=== PATIENT | male | born 1960 | race Caucasian/White ===

== ENCOUNTER 2017-04-04 11:48 | Inpatient (IN) | payer MEDICAID ==
--- NOTE | 2017-04-04 12:01 | ER Document Report ---
ED Medical Screen (RME) - General Chief Complaint: Headache >24 hrs old Stated Complaint: HEADACHE POSSIBLE STROKE SYMPTOMS Time Seen by Provider: 04/04/17 11:57 Notes: Patient was brought in by his who thinks he may be having another stroke. Patient says he had a bad headache for the past week. The headache has been constant. The headache is associated with numbness of his right side from the arm through the leg. He cannot walk without help from his . The headache is located on the left side of his head. He passed out falling to the floor hitting his head on Saturday. That fall was witnessed by his . Patient has a history of 2 prior strokes, in 2013 and 2015. He says his symptoms are about the same with this current illness. TRAVEL OUTSIDE OF THE [place] IN LAST 30 DAYS: No - Related Data Allergies/Adverse Reactions: No Known Allergies Allergy (Unverified 12/03/15 12:28) Past Medical History - Past Medical History Cardiac Medical History: Reports: Hx Hypercholesterolemia, Hx Hypertension Neurological Medical History: Reports: Hx Seizures Renal/ Medical History: Denies: Hx Peritoneal Dialysis Physical Exam - Vital signs Vitals: Temp Pulse BP Pulse Ox 97.8 F 116 H 135/102 H 93 04/04/17 11:51 04/04/17 11:51 04/04/17 11:51 04/04/17 11:51 Course - Vital Signs Vital signs: Temp Pulse Resp BP Pulse Ox 97.8 F 115 H 16 132/98 H 91 L 04/04/17 11:51 04/04/17 11:52 04/04/17 11:52 04/04/17 11:52 04/04/17 11:52
[2017-04-04 12:56] LABS: ABSOLUTE BASOPHILS # (AUTO) 0.1 10^3/uL (0.0-0.2); ABSOLUTE EOSINOPHILS # (AUTO) 0.1 10^3/uL (0.0-0.6); ABSOLUTE LYMPHOCYTES (AUTO) 2.1 10^3/uL (0.5-4.7); ABSOLUTE MONOCYTES (AUTO) 0.7 10^3/uL (0.1-1.4); ABSOLUTE NEUT (AUTO) 6.3 10^3/uL (1.7-8.2); APPEARANCE,URINE CLEAR; BASOPHILS % (AUTO) 1.1 % (0-2); BILIRUBIN,URINE NEGATIVE (NEGATIVE); GLUCOSE, URINE NEGATIVE (NEGATIVE); HEMATOCRIT 50.1 % (37.9-51.0); HEMOGLOBIN 16.6 g/dL (13.5-17.0); HGB HCT DIFFERENCE -0.3; KETONES,URINE NEGATIVE (NEGATIVE); LEUKOCYTE ESTERASE,URINE NEGATIVE (NEGATIVE); LYMPHOCYTES % (AUTO) 22.7 % (13-45); MEAN CORPUSCULAR HEMOGLOBIN 32.7 pg (27.0-33.4); MEAN CORPUSCULAR HGB CONC 33.1 g/dL (32.0-36.0); MEAN CORPUSCULAR VOLUME 99 fl (80-97); MONOCYTES % (AUTO) 7.9 % (3-13); NITRITE,URINE NEGATIVE (NEGATIVE); PROTEIN,URINE NEGATIVE (NEGATIVE); RED BLOOD COUNT 5.07 10^6/uL (4.35-5.55); RED CELL DISTRIBUTION WIDTH 13.8 % (11.5-14.0); SEGMENTED NEUTROPHILS % (AUTO) 67.3 % (42-78); UROBILINOGEN,URINE NEGATIVE mg/dL (<2.0); WHITE BLOOD COUNT 9.3 10^3/uL (4.0-10.5)
--- NOTE | 2017-04-04 12:57 | EKG REPORT ---
SEVERITY:- BORDERLINE ECG - SINUS RHYTHM PROBABLE LEFT ATRIAL ABNORMALITY BORDERLINE LEFT AXIS DEVIATION BORDERLINE PROLONGED QT INTERVAL : Confirmed by: Mohsen Garcia MD 04-Apr-2017 12:55:56
[2017-04-04 13:01] LABS: URINE SPECIFIC GRAVITY 1.002
--- NOTE | 2017-04-04 13:06 | RADIOLOGY REPORT (SQ) ---
EXAM DESCRIPTION: CT HEAD WITHOUT COMPLETED DATE/TIME: 04/04/2017 12:42 pm REASON FOR STUDY: Headache, numb right side, Hx strokes COMPARISON: CT brain 12/03/2015 TECHNIQUE: Axial images acquired through the brain without intravenous contrast. Images reviewed wi th bone, brain and subdural windows. Images stored on PACS. All CT scanners at this facility use dose modulation, iterative reconstruction, and/or weight based d osing when appropriate to reduce radiation dose to as low as reasonably achievable (ALARA). [facility]: Dose Right [facility]: CareDose [facility]: Dose Right [facility]: Teradose 4D [facility]: [employer] RADIATION DOSE: Up-to-date CT equipment and radiation dose reduction techniques were employed. CTDIv ol: 64.6 mGy. DLP: 1163 mGy-cm. mGy. LIMITATIONS: None. FINDINGS: VENTRICLES: Normal size and contour. CEREBRUM: Multiple foci of low attenuation in the bifrontal and biparietal white matter, bilateral ba golden ganglia, right and left thalamus from old lacunar infarcts. No CT evidence of large territory acute ischemic change, acute intracranial hemorrhage, mass effect, or midline shift. CEREBELLUM: Moderate pontine small vessel ischemic change. No CT evidence of large territory posteri or fossa infarct or acute posterior fossa intracranial hemorrhage. EXTRAAXIAL SPACES: No fluid collections. No masses. ORBITS AND GLOBE: No intra- or extraconal masses. Normal contour of globe without masses. CALVARIUM: Old right frontal craniotomy for evacuation of remote prior subdural hemorrhage. There ar e metallic sutures along the posterior aspect of the craniotomy. PARANASAL SINUSES: No fluid or mucosal thickening. SOFT TISSUES: No mass or hematoma. OTHER: Findings discussed with Dr. Rosado IMPRESSION: Chronic small vessel disease. No acute large territory infarct identified. No acute in tracranial hemorrhage. TECHNICAL DOCUMENTATION: JOB ID: [id number] Quality ID # [id number]: Final reports with documentation of one or more dose reduction techniques (e.g., Au tomated exposure control, adjustment of the mA and/or kV according to patient size, use of iterative reconstruction technique) 2010 [employer]- All Rights Reserved
[2017-04-04 13:14] LABS: ALANINE AMINOTRANSFERASE 87 U/L (21-72); ALBUMIN 4.7 g/dL (3.5-5.0); ALKALINE PHOSPHATASE 82 U/L (38-126); ANION GAP 14 (5-19); ASPARTATE AMINO TRANSFERASE 77 U/L (17-59); BILIRUBIN,DIRECT 0.3 mg/dL (0.0-0.4); BILIRUBIN,TOTAL 0.5 mg/dL (0.2-1.3); BLOOD UREA NITROGEN 4 mg/dL (7-20); CALCIUM 9.9 mg/dL (8.4-10.2); CARBON DIOXIDE 25 mmol/L (22-30); CHLORIDE 107 mmol/L (98-107); GLUCOSE 81 mg/dL (75-110); POTASSIUM 4.1 mmol/L (3.6-5.0); SODIUM 145.7 mmol/L (137-145); TOTAL PROTEIN 8.3 g/dL (6.3-8.2)
--- NOTE | 2017-04-04 14:21 | ER Document Report ---
ED Neuro Symptoms/Deficit - General Mode of Arrival: Wheelchair Information source: Patient TRAVEL OUTSIDE OF THE [place] IN LAST 30 DAYS: No - HPI Patient complains to provider of: Other - numbness Associated symptoms: Other <JEANETTE DAN - Last Filed: 04/04/17 20:03> <LASHAY DALTON - Last Filed: 04/15/17 00:17> - General Chief Complaint: Numbness Stated Complaint: numbness Time Seen by Provider: 04/04/17 11:57 Notes: Patient is a 56 year old male, with a past medical history including CVA and subdural hematoma when he was 20, who presents to the emergency department with his cloth hauler for worsening numbness and tingling in his right extremities. Patient states that he had fallen and hit his head 9 days ago and was unconscious for a few minutes, cloth hauler states she believes he had another stroke. Patient also complains of a headache that has been constant since he had a subdural hematoma at age 20 and has increased in the past couple of weeks. Transport Tech reports that he saw Dr. Browning after the fall and had CAT scan which was read today and they were told to come to the ED. PCP: Dr. Browning (JEANETTE DAN) - Related Data Allergies/Adverse Reactions: No Known Allergies Allergy (Unverified 12/03/15 12:28) Home Medications: Current Home Medications Aspirin [Ecotrin 325 mg EC Tablet] 325 mg PO DAILY 04/04/17 [History] Lisinopril [Prinivil 10 mg Tablet] 10 mg PO DAILY 04/04/17 [History] Oxycodone HCl/Acetaminophen [Percocet 10-325 mg Tablet] 1 each PO BIDP PRN 04/04 [History] Past Medical History - General Information source: Patient - Social History Smoking Status: Current Every Day Smoker Chew tobacco use (# tins/day): No Frequency of alcohol use: Social Drug Abuse: None Family History: Reviewed & Not Pertinent Patient has suicidal ideation: No Patient has homicidal ideation: No - Past Medical History Cardiac Medical History: Reports: Hx Hypercholesterolemia, Hx Hypertension Neurological Medical History: Reports: Hx Seizures - Immunizations Hx Diphtheria, Pertussis, Tetanus Vaccination: No <JEANETTE DAN - Last Filed: 04/04/17 20:03> Review of Systems - Review of Systems Constitutional: No symptoms reported EENT: No symptoms reported Cardiovascular: No symptoms reported Respiratory: No symptoms reported Gastrointestinal: No symptoms reported Genitourinary: No symptoms reported Male Genitourinary: No symptoms reported Musculoskeletal: No symptoms reported Skin: No symptoms reported Hematologic/Lymphatic: No symptoms reported Neurological/Psychological: See HPI, Headaches, Numbness, Tingling -: Yes All other systems reviewed and negative <JEANETTE DAN - Last Filed: 04/04/17 20:03> Physical Exam <JEANETTE DAN - Last Filed: 04/04/17 20:03> <LASHAY DALTON - Last Filed: 04/15/17 00:17> - Vital signs Vitals: Temp Pulse BP Pulse Ox 97.8 F 116 H 135/102 H 93 04/04/17 11:51 04/04/17 11:51 04/04/17 11:51 04/04/17 11:51 - Notes Notes: GENERAL: Alert, interacts well. No acute distress. HEAD: Normocephalic, atraumatic. EYES: Pupils equal, round, and reactive to light. Extraocular movements intact. ENT: Oral mucosa moist, tongue midline. NECK: Full range of motion. Supple. Trachea midline. LUNGS: Inspiratory rhonchi at bases. No wheezes or rales. No respiratory distress. HEART: Regular rate and rhythm. No murmurs, gallops, or rubs. ABDOMEN: Soft, non-tender. Non-distended. Bowel sounds present in all 4 quadrants. BACK: Palpable scoliosis. No step offs or deformities. No midline tonya tenderness to palpation. EXTREMITIES: Moves all 4 extremities spontaneously. No edema, radial and dorsalis pedis pulses 2/4 bilaterally. No cyanosis. Tenderness to palpation over 1st and 2nd metatarsals. NEUROLOGICAL: Alert and oriented x3. Normal speech. Biceps and patellar DTRs 2+ bilaterally. Right arm falls to bed before 10 second count, right lower extremity falls to bed before 5 second count. 5 out of 5 strength in left upper and lower extremities. 4 out of 5 strength to right upper and lower extremities. Decreased sensation in right hand. Slight left sided facial droop. PSYCH: Normal affect, normal mood. SKIN: Warm, dry, normal turgor. No rashes or lesions noted. (JEANETTE DAN) Course - Laboratory Result Diagrams: 04/04/17 12:30 04/04/17 12:30 <JEANETTE DAN - Last Filed: 04/04/17 20:03> - Laboratory Result Diagrams: 04/05/17 03:34 04/05/17 03:34 <LASHAY DALTON - Last Filed: 04/15/17 00:17> - Re-evaluation Re-evalutation: 04/04/17 15:13 CBC is unremarkable, coags normal, CMP shows slightly elevated sodium 145.7, AST and ALT somewhat elevated at 77 and 87 respectively, consistent with daily alcohol use, alcohol level is pending, urinalysis unremarkable, head CT shows chronic changes associated with prior subdural and craniotomy in 20 years old as well as stroke with several recurrences within the past 3 years. Patient has already been seen by his primary care physician, patient, caregiver and primary care physician all agree that symptoms are worsening, patient is having increasing falls. Primary care physician does not feel he can complete the workup for worsening weakness and falls and possible worsening of his stroke symptoms as an outpatient. Patient was discussed with Dr. Klein and Dr. Thomas for further workup regarding multiple falls and worsening of his stroke symptoms. Patient will be placed in observation status. Patient is not a candidate for TPA as his symptoms worsened 1 week ago. (LASHAY DALTON) - Vital Signs Vital signs: Temp Pulse Resp BP Pulse Ox 98.1 F 64 18 112/81 100 04/07/17 09:22 04/07/17 09:22 04/07/17 09:22 04/07/17 09:22 04/07/17 09:22 - Laboratory Laboratory results interpreted by me: 04/04/17 04/04/17 04/05/17 12:30 12:30 03:34 MCV 99 H 100 H Plt Count 136 L Sodium 145.7 H BUN 4 L Glucose AST 77 H ALT 87 H Total Protein 8.3 H 04/05/17 03:34 MCV Plt Count Sodium BUN Glucose 143 H AST ALT Total Protein - EKG Interpretation by Me Additional EKG results interpreted by me: 04/04/17 15:15 EKG shows sinus rhythm at a rate of 99, left axis deviation, prolonged QT interval, good R-wave progression, no ST segment elevations or depressions, no T -wave inversions per my interpretation. (LASHAY DALTON) Discharge <JEANETTE DAN - Last Filed: 04/04/17 20:03> - Discharge Admitting Provider: Hospitalist - Buste Unit Admitted: IMCU <LASHAY DALTON - Last Filed: 04/15/17 00:17> - Discharge Clinical Impression: CVA (cerebral vascular accident) Qualifiers: CVA mechanism: unspecified Qualified Code(s): I63.9 - Cerebral infarction, unspecified Condition: Fair Disposition: ADMITTED OBSERVATION Scribe Attestation: 04/15/17 00:17 I personally performed the services described in the documentation, reviewed and edited the documentation which was dictated to the scribe in my presence, and it accurately records my words and actions. (LASHAY DALTON) Scribe Documentation - Scribe Written by Scribe:: avis Nair, 04/04/17, 1534 acting as scribe for :: Marquez <JEANETTE DAN - Last Filed: 04/04/17 20:03> ED NIH Stroke Scale - NIH Stroke Scale When completed:: Protocol *: 1. NIH scale should be completed with appropriate accompanying assessment tools. *: 2. The NIH should reflect what the patient is capable of doing and should not be coached by the clinician. 1a. Level of Consciousness: 0=Alert;keenly responsive -: 1=Drowsy -: 2=Obtunded -: 3=Coma/unresponsive or reflex to noxious stimuli. 1a. Responses: 0 1b. Orientation Questions: a. What month is it? -: b. How old are you? -: 0=Answers both questions correctly. -: 1=Answers one question correctly or patient is intubated or has orotracheal trauma. -: 2=Answers neither question correctly. 1b. Responses: 0 1c. Response to commands: a. Open and close eyes? -: b. Instructional Manager and release hand? -: Credit is given despite weakness. Demonstration of task is permitted. Substitute command if hands cannot be used. -: 0=Performs both tasks correctly -: 1=Performs one task correctly -: 2=Performs neither task correctly 1c. Responses: 0 2. Gaze: Establish eye contact and instruct patient to "Follow my finger" -: 0=Normal -: 1=Partial gaze palsy. Gaze is abnormal in one or both eyes, but where forced deviation or total gaze paresis is not present. -: 2=Forced deviation or total gaze paresis. 2. Responses: 0 3. Visual Crook: Sees fingers in all four quadrants. -: 0=No visual loss. -: 1=Partial hemianopsia. -: 2=Complete hemianopsia. -: 3=Bilateral hemianopsia (including Cortical blindness) 3. Responses: 0 4. Facial Movement: Instruct patient to: -: a. Show me your teeth -: b. Raise your eyebrows -: c. Close your eyes -: d. Smile -: 0=Normal symmetrical movement -: 1=Minor paralysis (flattened nasolabial fold, asymmetry on smiling). -: 2=Partial paralysis (total or near total paralysis of lower face). -: 3=Complete paralysis of upper and lower face 4. Responses: 1 5. Motor functions (left arm): Alternate sides and extend each arm with palms down (90 degrees if sitting or 45 degrees for supine). -: 0=No drift;limb holds for full 10 seconds. -: 1=Drift; limb holds but drifts down before full 10 seconds, but does not hit bed. -: 2=Some effort against gravity; limb cannot get to or maintain position. -: 3=No effort against gravity; limb falls. -: 4=No movement. -: UN=Amputation, joint fusion, explain in comments. 5. Responses (left arm): 0 5. Motor Functions (right arm): Alternate sides and extend each arm with palms down (90 degrees if sitting or 45 degrees for supine). -: 0=No drift;limb holds for full 10 seconds. -: 1=Drift; limb holds but drifts down before full 10 seconds, but does not hit bed. -: 2=Some effort against gravity; limb cannot get to or maintain position. -: 3=No effort against gravity; limb falls. -: 4=No movement. -: UN=Amputation, joint fusion, explain in comments. 5. Responses (right arm): 2 6. Motor Functions (left leg): With patient lying supine, alternate sides and extend each leg (30 degrees always while supine). -: 0=No drift, leg holds position for full 5 seconds -: 1=Drift; leg falls before full 5 seconds but does not hit bed. -: 2=Some effort against gravity, leg falls to bed but some effort against gravity. -: 3=No effort against gravity, leg falls to bed immediately. -: 4=No movement. -: UN=Amputation, joint fusion; explain in comments. 6. Responses (left leg): 0 6. Motor Functions (right leg): With patient lying supine, alternate sides and extend each leg (30 degrees always while supine). -: 0=No drift, leg holds position for full 5 seconds -: 1=Drift; leg falls before full 5 seconds but does not hit bed. -: 2=Some effort against gravity, leg falls to bed but some effort against gravity. -: 3=No effort against gravity, leg falls to bed immediately. -: 4=No movement. -: UN=Amputation, joint fusion; explain in comments. 6. Responses (right leg): 2 7. Limb Ataxia: With eyes open instruct patient to: -: a. "Touch your finger to your nose". -: b. "Touch your heel to your dominguez" -: 0=Absent -: 1=Present in one limb. -: 2=Present in two limbs. -: UN=Amputation or joint fusion; explain in comments. 7. Responses: 0 8. Sensory: Test sensation using pinprick or noxious stimuli. Test as many body parts as possible. -: 0=Normal;no sensory loss -: 1=Mile to moderate sensory loss (patient feels pin prick but is less sharp on affected side). -: 2=Severe or total sensory loss. 8. Responses: 0 9. Best Language: Instruct patient to: -: a. "Describe what you see in this picture." -: b. "Name the items in this picture." -: c. "Read these sentences." -: 0=No aphasia, normal -: 1=Mild to moderate aphasia. -: 2=Severe aphasia -: 3=Mute, global aphasia, no usable speech or auditory comprehension. 9. Responses: 0 10. Articulation, Dysarthia: Instruct patient to: -: "Read these words" or "Repeat these words" -: 0=Normal -: 1=Mild to moderate; patient may slur some words but can be understood without difficulty. -: 2=Severe; patients speech so slurred as to be unintelligible in the absence of dysphasia. -: UN=Intubated or other physical barrier, explain in comments. 10. Responses: 0 11. Extinction or inattention: 0=No abnormality -: 1= Visual, tactile, auditory, spatial, or personal inattention or extinction to bilateral simulation in one or the sensory modalities. -: 2=Profound ivana-inattention or ivana-inattention to more than one modality; does not recognize own hand. 11. Responses: 0 Total Score: 5 <JEANETTE DAN - Last Filed: 04/04/17 20:03>
[2017-04-04] MEDS ORDERED: ASPIRIN 325 MG TABLET PO ONE (14:23)
[2017-04-04 14:32] LABS: PROTHROMBIN TIME 12.3 SEC (11.4-15.4)
[2017-04-04 14:33] LABS: PARTIAL THROMBOPLASTIN TIME 29.8 SEC (23.5-35.8)
[2017-04-04] MEDS ORDERED: ACETAMINOPHEN 325 MG TABLET PO PRN (15:30)
[2017-04-04] MEDS ORDERED: ONDANSETRON 4 MG TAB.RAPDIS PO PRN (15:30)
[2017-04-04] MEDS ORDERED: ALBUTEROL SULFATE 0.083% NEB 2.5 MG/3 ML AMPUL NEB PRN (15:30)
[2017-04-04] MEDS ORDERED: OXYCODONE-ACETAMINOPHEN 5-325 MG TABLET PO PRN (15:30)
--- NOTE | 2017-04-04 15:37 | RADIOLOGY REPORT (SQ) ---
EXAM DESCRIPTION: CHEST PA/LAT COMPLETED DATE/TIME: 04/04/2017 3:01 pm REASON FOR STUDY: worsening weakness COMPARISON: 12/03/2015 EXAM PARAMETERS: NUMBER OF VIEWS: two views TECHNIQUE: Digital Frontal and Lateral radiographic views of the chest acquired. RADIATION DOSE: NA LIMITATIONS: none FINDINGS: LUNGS AND PLEURA: No opacities, masses or pneumothorax. No pleural effusion. MEDIASTINUM AND HILAR STRUCTURES: No masses or contour abnormalities. HEART AND VASCULAR STRUCTURES: Heart normal size. No evidence for failure. BONES: No acute findings. HARDWARE: None in the chest. OTHER: No other significant finding. IMPRESSION: NO SIGNIFICANT RADIOGRAPHIC FINDING IN THE CHEST. TECHNICAL DOCUMENTATION: JOB ID: [id number] [employer]- All Rights Reserved
[2017-04-04] MEDS ORDERED: LORAZEPAM 1 MG TABLET PO PRN (15:42)
--- NOTE | 2017-04-04 15:53 | PDOC H&P ---
History of Present Illness Admission Date/PCP: 04/04/17 15:18 DIOGENES JACOBO MD Patient complains of: Right-sided weakness for the last 5 days. History of Present Illness: AHMET GAGNON is a 56 year old male history of a previous CVA with right- sided weakness last in the hospital year ago with a TIA who presents with a one- week history of worsening weakness on the right. He reports that he has become progressively weak mostly his right hand also involving his right leg. He denies any change in his sensation but does have some baseline numbness. The patient had a head CT done that showed no acute event. The patient does report he has problems with pain in his back and neck and has very significant degenerative disc disease. The patient denies any headache. He denies any visual loss. Denies any changes in hearing. Denies any dysarthria or dysphasia. He denies any bowel or bladder incontinence. He does continue to drink at least 3 beers daily. Patient has been taking aspirin and reports he is taking faithfully. Past Medical History Cardiac Medical History: Reports: Hyperlipidema, Hypertension Neurological Medical History: Reports: Seizures, Other - Subdural hematoma at age 20 Renal/ Medical History: Reports: None Malignancy Medical History: Reports: None GI Medical History: Reports: None Musculoskeltal Medical History: Reports: Other - Chronic back pain with degenerative disc disease Skin Medical History: Reports: None Psychiatric Medical History: Reports: Alcohol Dependency, Tobacco Dependency Hematology: Reports: None Infectious Medical History: Reports: None Social History Information Source: Patient Lives with: Spouse/Significant other Smoking Status: Current Every Day Smoker Frequency of Alcohol Use: Social Hx Recreational Drug Use: No Drugs: None Hx Prescription Drug Abuse: No - Advance Directive Resuscitation Status: Do Not Resuscitate Family History Family History: There is 74 alive and has skin cancer as well as coronary artery disease. Mother is alive at 75. She has diabetes and hypertension Parental Family History Reviewed: Yes Children Family History Reviewed: No Sibling(s) Family History Reviewed.: No Medication/Allergy Home Medications: Aspirin [Ecotrin 325 mg EC Tablet] 325 mg PO DAILY #90 tabec 12/05/15 Lisinopril 10 mg PO DAILY 04/04/17 Oxycodone HCl/Acetaminophen [Oxycodone-Acetaminophen 10-325] 1 each PO Q4H PRN 04/04/17 Allergies/Adverse Reactions: No Known Allergies Allergy (Unverified 12/03/15 12:28) Review of Systems Constitutional: ABSENT: chills, fever(s), headache(s), weight gain, weight loss Eyes: ABSENT: visual disturbances Ears: ABSENT: hearing changes Cardiovascular: ABSENT: chest pain, dyspnea on exertion, edema, orthropnea, palpitations Respiratory: ABSENT: cough, hemoptysis Gastrointestinal: ABSENT: abdominal pain, constipation, diarrhea, hematemesis, hematochezia, nausea, vomiting Genitourinary: ABSENT: dysuria, hematuria Musculoskeletal: ABSENT: joint swelling Integumentary: ABSENT: rash, wounds Neurological: PRESENT: as per HPI Psychiatric: ABSENT: anxiety, depression Endocrine: ABSENT: cold intolerance, heat intolerance, polydipsia, polyuria Hematologic/Lymphatic: ABSENT: easy bleeding, easy bruising Physical Exam Vital Signs: Temp Pulse Resp BP Pulse Ox 97.8 F 68 17 140/78 H 96 04/04/17 11:51 04/04/17 14:30 04/04/17 14:34 04/04/17 14:34 04/04/17 14:34 General appearance: PRESENT: no acute distress, well-developed, well-nourished Head exam: PRESENT: atraumatic, normocephalic Eye exam: PRESENT: conjunctiva pink, EOMI, PERRLA. ABSENT: scleral icterus Ear exam: PRESENT: normal external ear exam Mouth exam: PRESENT: moist, tongue midline Neck exam: ABSENT: carotid bruit, JVD, lymphadenopathy, thyromegaly Respiratory exam: PRESENT: clear to auscultation cedric. ABSENT: rales, rhonchi, wheezes Cardiovascular exam: PRESENT: RRR. ABSENT: diastolic murmur, rubs, systolic murmur Pulses: PRESENT: normal dorsalis pedis pul Vascular exam: PRESENT: normal capillary refill GI/Abdominal exam: PRESENT: normal bowel sounds, soft. ABSENT: distended, guarding, mass, organolmegaly, rebound, tenderness Rectal exam: PRESENT: deferred Extremities exam: ABSENT: calf tenderness, clubbing, pedal edema Neurological exam: PRESENT: alert, awake, oriented to person, oriented to place , oriented to time, oriented to situation, CN II-XII grossly intact, motor sensory deficit - 4 out of 5 on the right upper and lower extremity. Psychiatric exam: PRESENT: appropriate affect Skin exam: PRESENT: dry, intact, warm. ABSENT: cyanosis, rash Results Impressions: Head CT 04/04/17 11:58 IMPRESSION: Chronic small vessel disease. No acute large territory infarct identified. No acute intracranial hemorrhage. Chest X-Ray 04/04/17 14:50 IMPRESSION: NO SIGNIFICANT RADIOGRAPHIC FINDING IN THE CHEST. Assessment & Plan - Diagnosis (1) TIA (transient ischemic attack) Qualifiers: Transient cerebral ischemia type: unspecified Qualified Code(s): G45.9 - Transient cerebral ischemic attack, unspecified Is this a current diagnosis for this admission?: YesPlan: Patient complains of right-sided weakness. Patient was here at Hospital a year ago and had essentially see neurological exam with 4 out of 5 strength in upper and lower extremities. The patient reports that he had symptoms for the last 5 days has gotten progressively worse. Given his history of CVA and continued smoking will check an MRI to make certain he has not had a TIA or CVA although my suspicion is that this is related to some degenerative disc disease in his neck and back. Will give aspirin as he has been doing he had an echocardiogram and a carotid Doppler done 1 year ago that was essentially normal. We will not repeat this test today. (2) Weakness Is this a current diagnosis for this admission?: YesPlan: Likely secondary to degenerative disc disease in his back. We will give prednisone overnight to see how he does. The patient was intoxicated with alcohol at the time of my exam with a blood alcohol content of 106. (3) Hypertension Is this a current diagnosis for this admission?: YesPlan: Continue with the lisinopril. (4) Hyperlipidemia Is this a current diagnosis for this admission?: Yes - Time Time Spent: 50 to 70 Minutes - Plan Summary Plan Summary: Admit as observation as I anticipate this will require less than a 2 midnight hospital stay.
[2017-04-04] MEDS ORDERED: PREDNISONE 20 MG TABLET PO ONE (17:00)
[2017-04-04] MEDS: FAMOTIDINE 20 MG TABLET PO SCH (21:32)
--- NOTE | 2017-04-04 23:25 | RADIOLOGY REPORT (SQ) ---
EXAM DESCRIPTION: MRI HEAD WITHOUT COMPLETED DATE/TIME: 04/04/2017 8:51 pm REASON FOR STUDY: cva like symptoms COMPARISON: CT brain done earlier the same day, MRI brain dated 12/03/2015 TECHNIQUE: Multiplanar imaging includes non-contrasted T1, T2, FLAIR, and Diffusion with ADC map seq uences. Images stored on PACS. LIMITATIONS: There is artifact from prior craniotomy on the right. FINDINGS: ANATOMY: No anomalies. Normal vascular flow voids. Pituitary fossa normal. CSF SPACES: Normal in size and contour. No hemorrhage. CEREBRUM: A few high-signal intensity lesions scattered throughout the white matter on FLAIR imaging with distribution suggesting chronic micro-vascular ischemic change. Sulci and gyri normal in size a nd contour. No evidence of hemorrhage, mass or extraaxial fluid collection. POSTERIOR FOSSA: No signal alteration. No hemorrhage. No edema, masses or mass effect. Internal sachin tory canals, cerebello-pontine angles, mastoids normal. DIFFUSION: There is abnormal signal in the left aspect of the thalamus. This is consistent with acut e infarct. ORBITS: No masses. Globes normal. PARANASAL SINUSES: No fluid levels. Mucosa normal. OTHER: No other significant finding. IMPRESSION: 1. Acute left thalamic infarct. This measures 9.7 mm in greatest diameter. 2. Generalized atrophy and small-vessel ischemic changes. COMMENT: This report was called to Cait Ballesteros, the patient's nurse at23:15 on 04/04/2017. TECHNICAL DOCUMENTATION: JOB ID: [id number] [employer]- All Rights Reserved
[2017-04-05 04:52] LABS: HEMATOCRIT 47.6 % (37.9-51.0); HEMOGLOBIN 15.5 g/dL (13.5-17.0); HGB HCT DIFFERENCE -1.1; MEAN CORPUSCULAR HEMOGLOBIN 32.5 pg (27.0-33.4); MEAN CORPUSCULAR HGB CONC 32.6 g/dL (32.0-36.0); MEAN CORPUSCULAR VOLUME 100 fl (80-97); RED BLOOD COUNT 4.77 10^6/uL (4.35-5.55); RED CELL DISTRIBUTION WIDTH 13.9 % (11.5-14.0); WHITE BLOOD COUNT 4.5 10^3/uL (4.0-10.5)
[2017-04-05 05:23] LABS: ANION GAP 13 (5-19); BLOOD UREA NITROGEN 12 mg/dL (7-20); CALCIUM 9.4 mg/dL (8.4-10.2); CARBON DIOXIDE 22 mmol/L (22-30); CHLORIDE 104 mmol/L (98-107); CREATININE RESULT 0.63 mg/dL (0.52-1.25); GLUCOSE 143 mg/dL (75-110); POTASSIUM 4.5 mmol/L (3.6-5.0); SODIUM 138.9 mmol/L (137-145)
[2017-04-05] MEDS: ASPIRIN 325 MG TABLET, ENT COATED PO SCH (09:50)
[2017-04-05] MEDS: LISINOPRIL 10 MG TABLET PO SCH (09:50)
[2017-04-05] MEDS: PREDNISONE 20 MG TABLET PO SCH (09:50)
[2017-04-05] MEDS: ENOXAPARIN SODIUM INJ 40 MG/0.4 ML DISP.SYRIN SUBCUT SCH (09:51)
[2017-04-05] MEDS: FAMOTIDINE 20 MG TABLET PO SCH ×2 (09:51→22:17)
--- NOTE | 2017-04-05 11:39 | PDOC PROGRESS REPORT ---
Subjective Progress Note for:: 04/05/17 Subjective:: Patient continued to have right-sided weakness. MRI does confirm an acute CVA. Physical Exam Vital Signs: Temp Pulse Resp BP Pulse Ox 97.8 F 79 16 135/98 H 98 04/05/17 07:33 04/05/17 07:33 04/05/17 07:33 04/05/17 07:33 04/05/17 07:33 Intake & Output 04/04/17 04/05/17 04/06/17 06:59 06:59 06:59 Intake Total 10 Balance 10 Weight 66 kg General appearance: PRESENT: no acute distress Eye exam: PRESENT: conjunctiva pink. ABSENT: scleral icterus Mouth exam: PRESENT: moist, tongue midline Neck exam: ABSENT: JVD Respiratory exam: PRESENT: clear to auscultation cedric. ABSENT: rales, rhonchi, wheezes Cardiovascular exam: PRESENT: RRR. ABSENT: diastolic murmur, rubs, systolic murmur GI/Abdominal exam: PRESENT: normal bowel sounds, soft. ABSENT: distended, guarding, mass, organolmegaly, rebound, tenderness Extremities exam: ABSENT: calf tenderness, clubbing, pedal edema Neurological exam: PRESENT: alert, awake, oriented to person, oriented to place , oriented to time, oriented to situation, CN II-XII grossly intact, motor sensory deficit - Strength is 4 out of 5 in the right upper and lower extremity. Psychiatric exam: PRESENT: appropriate affect Skin exam: PRESENT: dry, intact, warm. ABSENT: cyanosis, rash Results Laboratory Results: 04/05/17 03:34 04/05/17 03:34 04/05/17 04/05/17 03:34 03:34 WBC 4.5 RBC 4.77 Hgb 15.5 Hct 47.6 MCV 100 H MCH 32.5 MCHC 32.6 RDW 13.9 Plt Count 136 L Sodium 138.9 Potassium 4.5 Chloride 104 Carbon Dioxide 22 Anion Gap 13 BUN 12 Creatinine 0.63 Est GFR ( Amer) > 60 Est GFR (Non-Af Amer) > 60 Glucose 143 H Calcium 9.4 Impressions: Head MRI 04/04/17 00:00 IMPRESSION: 1. Acute left thalamic infarct. This measures 9.7 mm in greatest diameter. 2. Generalized atrophy and small-vessel ischemic changes. Head CT 04/04/17 11:58 IMPRESSION: Chronic small vessel disease. No acute large territory infarct identified. No acute intracranial hemorrhage. Chest X-Ray 04/04/17 14:50 IMPRESSION: NO SIGNIFICANT RADIOGRAPHIC FINDING IN THE CHEST. Assessment & Plan - Diagnosis (1) CVA (cerebral vascular accident) Qualifiers: CVA mechanism: unspecified Qualified Code(s): I63.9 - Cerebral infarction, unspecified Is this a current diagnosis for this admission?: YesPlan: Right-sided weakness and MRI confirmed that he has had an acute CVA. Will continue with aspirin, PT, OT. The patient is uncertain as to whether or not he wants to go to rehab. We will monitor over the weekend and make disposition on Saturday (2) Weakness Is this a current diagnosis for this admission?: YesPlan: Does have degenerative disc disease but also does have an acute CVA. Will continue with aspirin and PT, OT (3) Hypertension Is this a current diagnosis for this admission?: YesPlan: Continue with the lisinopril. (4) Hyperlipidemia Is this a current diagnosis for this admission?: YesPlan: We will start him on Lipitor. - Time Time Spent with patient: 25-34 minutes - Plan Summary Plan Summary: Change from an observation to an inpatient.
[2017-04-05] MEDS: ATORVASTATIN CALCIUM 40 MG TABLET PO SCH (22:17)
[2017-04-06] MEDS: LISINOPRIL 10 MG TABLET PO SCH (10:01)
[2017-04-06] MEDS: ENOXAPARIN SODIUM INJ 40 MG/0.4 ML DISP.SYRIN SUBCUT SCH (10:01)
[2017-04-06] MEDS: FAMOTIDINE 20 MG TABLET PO SCH ×2 (10:01→22:00)
[2017-04-06] MEDS: ASPIRIN 325 MG TABLET, ENT COATED PO SCH (10:01)
[2017-04-06] MEDS: PREDNISONE 20 MG TABLET PO SCH (10:01)
--- NOTE | 2017-04-06 12:13 | PDOC PROGRESS REPORT ---
Subjective Progress Note for:: 04/06/17 Subjective:: Patient continued to have right-sided weakness. MRI does confirm an acute CVA. Physical Exam Vital Signs: Temp Pulse Resp BP Pulse Ox 97.9 F 76 16 114/88 H 100 04/06/17 07:39 04/06/17 08:00 04/06/17 08:00 04/06/17 08:00 04/06/17 08:00 Intake & Output 04/05/17 04/06/17 04/07/17 06:59 06:59 06:59 Intake Total 900 Balance 900 Weight 66 kg General appearance: PRESENT: no acute distress Eye exam: PRESENT: conjunctiva pink. ABSENT: scleral icterus Mouth exam: PRESENT: moist, tongue midline Neck exam: ABSENT: JVD Respiratory exam: PRESENT: clear to auscultation cedric. ABSENT: rales, rhonchi, wheezes Cardiovascular exam: PRESENT: RRR. ABSENT: diastolic murmur, rubs, systolic murmur GI/Abdominal exam: PRESENT: normal bowel sounds, soft. ABSENT: distended, guarding, mass, organolmegaly, rebound, tenderness Extremities exam: ABSENT: calf tenderness, clubbing, pedal edema Neurological exam: PRESENT: alert, awake, oriented to person, oriented to place , oriented to time, oriented to situation, CN II-XII grossly intact, motor sensory deficit Psychiatric exam: PRESENT: appropriate affect Skin exam: PRESENT: dry, intact, warm. ABSENT: cyanosis, rash Results Impressions: Head MRI 04/04/17 00:00 IMPRESSION: 1. Acute left thalamic infarct. This measures 9.7 mm in greatest diameter. 2. Generalized atrophy and small-vessel ischemic changes. Head CT 04/04/17 11:58 IMPRESSION: Chronic small vessel disease. No acute large territory infarct identified. No acute intracranial hemorrhage. Chest X-Ray 04/04/17 14:50 IMPRESSION: NO SIGNIFICANT RADIOGRAPHIC FINDING IN THE CHEST. Assessment & Plan - Diagnosis (1) CVA (cerebral vascular accident) Qualifiers: CVA mechanism: unspecified Qualified Code(s): I63.9 - Cerebral infarction, unspecified Is this a current diagnosis for this admission?: YesPlan: Right-sided weakness and MRI confirmed that he has had an acute CVA. Will continue with aspirin, PT, OT. The patient is uncertain as to whether or not he wants to go to rehab. We will monitor over the weekend and make disposition on Saturday (2) Weakness Is this a current diagnosis for this admission?: YesPlan: Does have degenerative disc disease but also does have an acute CVA. Will continue with aspirin and PT, OT (3) Hypertension Is this a current diagnosis for this admission?: YesPlan: Continue with the lisinopril. (4) Hyperlipidemia Is this a current diagnosis for this admission?: YesPlan: We will start him on Lipitor. - Time Time Spent with patient: 25-34 minutes
[2017-04-06] MEDS: ATORVASTATIN CALCIUM 40 MG TABLET PO SCH (21:59)
[2017-04-07 08:08] VITALS: BP 112/81
[2017-04-07] MEDS: ENOXAPARIN SODIUM INJ 40 MG/0.4 ML DISP.SYRIN SUBCUT SCH (09:37)
[2017-04-07] MEDS: PREDNISONE 20 MG TABLET PO SCH (09:37)
[2017-04-07] MEDS: FAMOTIDINE 20 MG TABLET PO SCH (09:37)
[2017-04-07] MEDS: LISINOPRIL 10 MG TABLET PO SCH (09:38)
[2017-04-07] MEDS: ASPIRIN 325 MG TABLET, ENT COATED PO SCH (09:38)
--- NOTE | 2017-04-07 11:06 | PDOC DISCHARGE SUMMARY ---
General - Admit/Disc Date/PCP Admission Date/Primary Care Provider: 04/05/17 11:16 DIOGENES JACOBO MD Discharge Date: 04/07/17 - Discharge Diagnosis (1) CVA (cerebral vascular accident) Is this a current diagnosis for this admission?: Yes (2) Weakness Is this a current diagnosis for this admission?: Yes (3) Hypertension Is this a current diagnosis for this admission?: Yes (4) Hyperlipidemia Is this a current diagnosis for this admission?: Yes - Additional Information Resuscitation Status: Do Not Resuscitate Discharge Diet: Cardiac Discharge Activity: Activity As Tolerated, Balance Activity w/Rest, Slowly Increase Activity Home Medications: Aspirin [Ecotrin 325 mg EC Tablet] 325 mg PO DAILY 04/04/17 Lisinopril [Prinivil 10 mg Tablet] 10 mg PO DAILY 04/04/17 Oxycodone HCl/Acetaminophen [Percocet 10-325 mg Tablet] 1 each PO BIDP PRN 04/04 Atorvastatin Calcium [Lipitor 40 mg Tablet] 40 mg PO QHS #30 tablet 04/07/17 History of Present Illness History of Present Illness: AHMET GAGNON is a 56 year old male history of a previous CVA with right- sided weakness last in the hospital year ago with a TIA who presents with a one- week history of worsening weakness on the right. He reports that he has become progressively weak mostly his right hand also involving his right leg. He denies any change in his sensation but does have some baseline numbness. The patient had a head CT done that showed no acute event. The patient does report he has problems with pain in his back and neck and has very significant degenerative disc disease. The patient denies any headache. He denies any visual loss. Denies any changes in hearing. Denies any dysarthria or dysphasia. He denies any bowel or bladder incontinence. He does continue to drink at least 3 beers daily. Patient has been taking aspirin and reports he is taking faithfully. Hospital Course Hospital Course: 6-year-old gentleman who was admitted with right-sided weakness. The patient had had a previous CVA with the same symptoms previously. He also had degenerative joint disease. Initial head CT was negative and he did have some radicular symptoms and was started on prednisone empirically. The patient did not have any improvement with the prednisone and an MRI did confirm an acute left-sided CVA. Patient was treated with PT, OT, aspirin. The patient had an echocardiogram and carotid Doppler the past and this was not repeated. He was continued with his aspirin. The patient had slight improvement in symptoms and he requested to go home and do home physical therapy. He was started on Lipitor. Physical Exam Vital Signs: Temp Pulse Resp BP Pulse Ox 98.1 F 64 18 112/81 100 04/07/17 09:22 04/07/17 09:22 04/07/17 09:22 04/07/17 09:22 04/07/17 09:22 Intake & Output 04/06/17 04/07/17 04/08/17 06:59 06:59 06:59 Intake Total 900 1255 Balance 900 1255 Weight 66 kg 66.1 kg General appearance: PRESENT: no acute distress Eye exam: PRESENT: conjunctiva pink. ABSENT: scleral icterus Mouth exam: PRESENT: moist, tongue midline Neck exam: ABSENT: JVD Respiratory exam: PRESENT: clear to auscultation cedric. ABSENT: rales, rhonchi, wheezes Cardiovascular exam: PRESENT: RRR. ABSENT: diastolic murmur, rubs, systolic murmur GI/Abdominal exam: PRESENT: normal bowel sounds, soft. ABSENT: distended, guarding, mass, organolmegaly, rebound, tenderness Extremities exam: ABSENT: calf tenderness, clubbing, pedal edema Neurological exam: PRESENT: alert, awake, oriented to person, oriented to place , oriented to time, oriented to situation, CN II-XII grossly intact, motor sensory deficit - Right upper and lower extremity weakness 4 out of 5. Psychiatric exam: PRESENT: appropriate affect Skin exam: PRESENT: dry, intact, warm. ABSENT: cyanosis, rash Results Impressions: Head MRI 04/04/17 00:00 IMPRESSION: 1. Acute left thalamic infarct. This measures 9.7 mm in greatest diameter. 2. Generalized atrophy and small-vessel ischemic changes. Head CT 04/04/17 11:58 IMPRESSION: Chronic small vessel disease. No acute large territory infarct identified. No acute intracranial hemorrhage. Chest X-Ray 04/04/17 14:50 IMPRESSION: NO SIGNIFICANT RADIOGRAPHIC FINDING IN THE CHEST. Qualifiers PATEINT BEING DISCHARGED WITH ANY OF THE FOLLOWING DIAGNOSIS?: Stroke Stroke Pt being discharged on Anti-thrombolytic therapy?: Yes Stroke Pt being discharged on Anti-coagulation therapy?: No Reason(s) for not prescribing Anti-coagulation therapy:: Not indicated Stroke Pt being discharged on Statins?: Yes Plan Discharge Plan: Discharged to home. Will follow up with primary care in 1-2 weeks. Time Spent: Greater than 30 Minutes
== END 2017-04-07 09:56 | disposition home health service (06) | DRG 66 ==
LOC: ER 11:48 → INTOOBSV 15:18 → EH 15:18 → 3W 17:00 → OBSVTOIN 04-05 11:16
PROVIDERS: ADMIT Family Medicine; ATTEND Family Medicine
PROC: 3E0F73Z Introduction of Anti-inflammatory into Respiratory Tract, Via Natural or Artificial Opening (ICD-10-PCS; principal; 2017-04-04)
DX: I63.9 Cerebral infarction, unspecified (principal); R53.1 Weakness; I10 Essential (primary) hypertension; E78.5 Hyperlipidemia, unspecified; M19.90 Unspecified osteoarthritis, unspecified site; M51.36 Other intervertebral disc degeneration, lumbar region; M50.30 Other cervical disc degeneration, unspecified cervical region; G89.29 Other chronic pain; F17.210 Nicotine dependence, cigarettes, uncomplicated; F10.20 Alcohol dependence, uncomplicated; Z66 Do not resuscitate; Y90.5 Blood alcohol level of 100-119 mg/100 ml; I45.81 Long QT syndrome; Z79.82 Long term (current) use of aspirin; Z79.899 Other long term (current) drug therapy; Z91.81 History of falling; Z80.8 Family history of malignant neoplasm of other organs or systems; Z80.9 Family history of malignant neoplasm, unspecified; Z82.49 Family history of ischemic heart disease and other diseases of the circulatory system; Z83.3 Family history of diabetes mellitus
CPT/HCPCS: 36415; 70450; 70551; 71020; 80048; 80053; 80307; 81001; 85025; 85027; 85610; 85730; 93005; 93010; 99285; G0378; J1650; J3490; J7512

== ENCOUNTER → 2017-04-30 | Outpatient (CLI) | payer MEDICAID ==
--- NOTE | 2017-04-30 14:14 | RADIOLOGY REPORT (SQ) ---
EXAM DESCRIPTION: CAROTID DOPPLER COMPLETED DATE/TIME: 04/30/2017 1:49 pm REASON FOR STUDY: CEREBRAL INFARCTION I63.9 CEREBRAL INFARCTION, UNSPECIFIED COMPARISON: 12/05/2015. TECHNIQUE: Grayscale ultrasound, Doppler velocity and spectra, and color Doppler images acquired of the extra-cranial carotid and vertebral arteries. Images stored on PACS. LIMITATIONS: None. FINDINGS: RIGHT CAROTID CCA Velocities: Within normal limits. ICA Velocities Peak systolic 0.76 m/s. End diastolic 0.35 m/s. Proximal ICA/CCA peak systolic ratio 1.6. Spectra normal. No significant plaque. LEFT CAROTID CCA Velocities: Within normal limits. ICA Velocities Peak systolic 0.72 m/s. End diastolic 0.35 m/s. Proximal ICA/CCA peak systolic ratio 1.7. Spectra normal. No significant plaque. VERTEBRAL ARTERIES: Antegrade flow. Normal waveforms. SUBCLAVIAN ARTERIES: No finding. OTHER: No other significant finding. IMPRESSION: NO HEMODYNAMICALLY SIGNIFICANT STENOSIS. COMMENT: Quality ID #[id number]: Velocity criteria are extrapolated from the diameter data as defined by t he Society of Radiologists in Ultrasound Consensus Conference. Radiology 2003: 229; 340-346. TECHNICAL DOCUMENTATION: JOB ID: [id number] [employer]- All Rights Reserved
--- NOTE | 2017-04-30 19:50 | XCELERA REPORT ---
[address] [address] Transthoracic Echocardiogram Report Name: AHMET GAGNON Age: 56 yrs Gender: Male : 1960 Patient Status: Outpatient Patient Location: Study Date: 04/30/2017 01:00 PM Height: 66 in Weight: 140 lb BSA: 1.7 m2 Reason For Study: CVA Ordering Physician: DIOGENES JACOBO Performed By: Stephanie Wright Interpretation Summary calcified dilated aortic sinuses . AV sclerosis with no , no AR. No Mitral annular calcification, thickened AML, no MS, no MR and no LA enlargement and no LA clot. No LVH, LVEF 34%, with stage I LV diastolic dysfunction, no enlargement, multiple regional wall motion abnormality, mango in the IVS, inferior wall and anterior wall. RH poorly seen , trace TR, unable to derive RVSP. No cardiogenic emboli, no ASD. MMode/2D Measurements \T\ Calculations RVDd: 3.2 cm LVIDd: 4.1 cm FS: 21.2 % Ao root diam: 4.5 cm IVSd: 1.00 cm LVIDs: 3.2 cm EDV(Teich): 75.0 ml LVPWd: 0.95 cmESV(Teich): 42.3 mlAo root area: 15.7 cm2 EF(Teich): 43.6 % LA dimension: 3.0 cm LVOT diam: 2.5 cm LVOT area: 5.1 cm2 Doppler Measurements \T\ Calculations MV E max jian: MV P1/2t max jian: Ao V2 max: LV V1 max P.3 cm/sec 38.6 cm/sec 80.1 cm/sec 2.0 mmHg MV A max jian: MV P1/2t: 41.2 msec Ao max PG: LV V1 max: 58.6 cm/sec MVA(P1/2t): 5.3 cm2 2.6 mmHg 71.3 cm/sec MV E/A: 0.65 MV dec slope: BRENDA(V,D): 4.5 cm2 274.1 cm/sec2 PA V2 max: PI end-d jian: 52.4 cm/sec 161.0 cm/sec PA max P.1 mmHg Left Ventricle The left ventricle is normal in size. There is normal left ventricular wall thickness. Left ventricular systolic function is mildly reduced. The Ejection Fraction estimate is 30-35%. Doppler measurements suggest impaired left ventricular relaxation, which is associated with grade I/IV or mild diastolic dysfunction. There are regional wall motion abnormalities as specified. There is no thrombus. Right Ventricle The right ventricle is normal size. The right ventricular systolic function is mildly reduced. Atria The right atrium is normal. The left atrial size is normal. The interatrial septum is intact with no evidence for an atrial septal defect. Mitral Valve The mitral valve leaflets are sclerotic and show some degree of functional abnormality. There is no mitral annular calcification. There is no evidence of mitral valve prolapse. There is no mitral valve stenosis. There is no mitral regurgitation noted. Aortic Valve The aortic valve opens well. The aortic valve is sclerotic and shows some degree of functional abnormality. The aortic valve is trileaflet. There is no aortic valvular vegetation. There is no aortic valve stenosis. No aortic regurgitation is present. Tricuspid Valve The tricuspid valve is not well visualized secondary to technical limitations. There is a trace or physiologic amount of tricuspid regurgitation. Pulmonic Valve The pulmonic valve is not well visualized. There is a mild amount of pulmonic regurgitation. Great Vessels The aortic root is mildly dilated. There is aortic root sclerosis/calcification. I WMSI = 1.56 % Normal = 44 Segments Size X - Cannot 1 - Normal 2 - 3 - Akinetic4 - 1-2 small Interpret Hypokinetic Dyskinetic 3-5 moderate 5 - 6-14 large Aneurysmal 15-16 diffuse : DIOGENES JACOBO > Mohsen Garcia
== END ==
LOC: SP 12:32
PROVIDERS: ATTEND Family Medicine
DX: I63.9 Cerebral infarction, unspecified (principal)
CPT/HCPCS: 93306; 93880

== ENCOUNTER → 2017-06-06 | Outpatient (CLI) | payer MEDICAID ==
[2017-06-06 14:43] LABS: HEMOGLOBIN 16.8 g/dL (13.5-17.0); HGB HCT DIFFERENCE 0.4; MEAN CORPUSCULAR HEMOGLOBIN 33.9 pg (27.0-33.4); MEAN CORPUSCULAR HGB CONC 33.6 g/dL (32.0-36.0); MEAN CORPUSCULAR VOLUME 101 fl (80-97); RED BLOOD COUNT 4.96 10^6/uL (4.35-5.55); WHITE BLOOD COUNT 6.8 10^3/uL (4.0-10.5)
[2017-06-06 15:07] LABS: ANION GAP 16 (5-19); BLOOD UREA NITROGEN 13 mg/dL (7-20); CALCIUM 10.9 mg/dL (8.4-10.2); CARBON DIOXIDE 24 mmol/L (22-30); CHLORIDE 98 mmol/L (98-107); CHOLESTEROL 253.38 mg/dL (0-200); CREATININE RESULT 0.73 mg/dL (0.52-1.25); Direct HDL 95 mg/dL (>40); GLUCOSE 102 mg/dL (75-110); MAGNESIUM 2.1 mg/dL (1.6-2.3); POTASSIUM 4.3 mmol/L (3.6-5.0); SODIUM 137.9 mmol/L (137-145); TRIGLYCERIDES 100 mg/dL (<150)
[2017-06-06 15:17] LABS: DIRECT LDL 154 mg/dL (<100)
[2017-06-06 17:25] LABS: ALANINE AMINOTRANSFERASE 140 U/L (21-72); ALBUMIN 4.9 g/dL (3.5-5.0); ALKALINE PHOSPHATASE 96 U/L (38-126); ASPARTATE AMINO TRANSFERASE 114 U/L (17-59); BILIRUBIN,DIRECT 0.7 mg/dL (0.0-0.4); BILIRUBIN,TOTAL 1.1 mg/dL (0.2-1.3); TOTAL PROTEIN 8.3 g/dL (6.3-8.2)
[2017-06-08 08:21] LABS: VITAMIN D 25-HYDROXY 13.4 ng/mL (30.0-100.0)
[2017-06-08 13:40] LABS: B-TYPE NATRIURETIC PEPTIDE 15.6 pg/mL (0.0-100.0)
== END ==
LOC: OD 13:35
PROVIDERS: ATTEND Internal Medicine Cardiovascular Disease
DX: I50.9 Heart failure, unspecified (principal); E78.00 Pure hypercholesterolemia, unspecified
CPT/HCPCS: 36415; 80048; 80061; 80076; 82306; 82977; 83735; 83880; 84443; 85027